=== PATIENT | male | born 1960 | race Caucasian/White ===

== ENCOUNTER 2021-08-25 14:01 | Emergency (ER) | payer OTHER ==
[2021-08-25 14:11] VITALS: BP 105/71; PULSE 107; TEMP 97.5; BMI 16.4
[2021-08-25] MEDS ORDERED: ALBUTEROL SO4 2.5/IPRATROPIUM 0.5 INH SOL 3 ML VIAL.NEB. NEB ONE (15:11)
[2021-08-25] MEDS ORDERED: predniSONE 20 MG TABLET (UD) ONE (15:27)
[2021-08-25] MEDS ORDERED: predniSONE 20 MG TABLET (UD) PO ONE (15:40)
[2021-08-26] MEDS ORDERED: predniSONE 20 MG TABLET (UD) PO SCH (10:00)
== END 2021-08-25 17:00 | disposition home or self-care (01) ==
LOC: JER 14:01
PROC: 3E0F7GC Introduction of Other Therapeutic Substance into Respiratory Tract, Via Natural or Artificial Opening (ICD-10-PCS; principal; 2021-08-25)
DX: J44.1 Chronic obstructive pulmonary disease with (acute) exacerbation (principal); F11.90 Opioid use, unspecified, uncomplicated
CPT/HCPCS: 93005; 93010; 99284-25; C9803-CS; U0003; U0005

== ENCOUNTER 2021-08-25 18:12 | Inpatient (IN) | payer OTHER ==
[2021-08-25 21:07] VITALS: BMI 16.0
[2021-08-25] MEDS ORDERED: ACETAMINOPHEN 325 MG TABLET (FP) PO PRN (21:32)
[2021-08-25] MEDS ORDERED: IBUPROFEN 400 MG TABLET (FP) PO PRN (21:32)
[2021-08-25] MEDS ORDERED: MAG HYDROX/AL HYDROX/SIMETH 30 ML UNIT-DOSE CUP PO PRN (21:32)
[2021-08-25] MEDS ORDERED: MAGNESIUM HYDROX 2400MG/30ML ORAL SUSPENSION 30 ML CUP PO PRN (21:32)
[2021-08-25] MEDS ORDERED: guaiFENesin 200 MG/10 ML 10 ML UNIT-DOSE CUPS PO PRN (21:32)
[2021-08-25] MEDS ORDERED: LOPERAMIDE HCL 2 MG CAPSULE PO PRN (21:32)
[2021-08-25] MEDS ORDERED: MAGNESIUM CITRATE 300 ML BOTTLE PO PRN (21:32)
[2021-08-25] MEDS ORDERED: P-EPHED 60MG/TRIPROLIDI 2.5MG TABLET PO PRN (21:32)
[2021-08-25] MEDS ORDERED: cloNIDine HCL 0.1 MG TABLET PO PRN (21:42)
[2021-08-25] MEDS ORDERED: MELATONIN 5 MG TABLETS PO SCH (22:00)
[2021-08-25] MEDS ORDERED: BUPRENORPHINE/NALOXONE 4 MG/1 MG FILM PACKET SL ONE (22:00)
[2021-08-26] MEDS: THIAMINE HCL 100 MG TABLET (FP) PO SCH ×2 (00:40→21:22)
[2021-08-26] MEDS: ALBUTEROL SO4 2.5/IPRATROPIUM 0.5 INH SOL 3 ML VIAL.NEB. NEB PRN ×2 (01:13→07:03)
[2021-08-26] MEDS: PRENATAL VITAMINS W/ FOLIC ACID TABLET (FP) PO SCH (09:39)
[2021-08-26] MEDS ORDERED: PATIENT'S OWN MEDICATION (NON-FORMULARY) (Ipratropium/Albuterol Sulfate 1 PUFF Inhaler) IH PRN (09:45)
[2021-08-26] MEDS ORDERED: LISINOPRIL 5 MG TABLET PO SCH (10:00)
[2021-08-26] MEDS ORDERED: TICAGRELOR 90 MG TABLET PO SCH (10:00)
[2021-08-26] MEDS ORDERED: BUPRENORPHINE/NALOXONE 8 MG/2 MG FILM PACKET SL SCH (10:00)
[2021-08-26] MEDS: TICAGRELOR PO SCH ×3 (11:40→21:20)
[2021-08-26] MEDS ORDERED: PATIENT'S OWN MEDICATION (NON-FORMULARY) (Ipratropium/Albuterol Sulfate 4 GM) IH PRN (12:14)
[2021-08-26 13:45] LABS: HEMATOCRIT 38.4 % (35.4-49); HEMOGLOBIN 12.9 GM/dL (11.7-16.9); MCH 29.4 pg (25.7-33.7); MCHC 33.6 g/dl (32.0-35.9); MEAN CELL VOLUME 87.4 fl (80-96); MEAN PLT VOLUME 6.5 fl (7.5-11.1); PLATELET COUNT 433 10^3/uL (134-434); RBC 4.39 M/mm3 (4.00-5.60); RDW 14.2 % (11.9-15.9); WHITE BLOOD COUNT 9.3 K/mm3 (4.0-10.0)
[2021-08-26 13:49] LABS: PH,URINE 6.5 (5.0-8.0); URINE APPEARANCE CLEAR; URINE BILIRUBIN NEGATIVE (NEGATIVE); URINE COLOR YELLOW; URINE GLUCOSE (UA) NEGATIVE (NEGATIVE); URINE KETONE NEGATIVE (NEGATIVE); URINE LEUK ESTERASE NEGATIVE (NEGATIVE); URINE NITRITE NEGATIVE (NEGATIVE); URINE PROTEIN NEGATIVE (NEGATIVE); URINE UROBILINOGEN 0.2 mg/dL (0.2-1.0)
[2021-08-26 14:13] LABS: ALBUMIN 3.2 g/dl (3.4-5.0); CALCIUM 9.7 mg/dL (8.5-10.1)
[2021-08-26 14:16] LABS: BLOOD UREA NITROGEN 17.3 mg/dL (7-18); CREATININE 0.6 mg/dL (0.55-1.3)
[2021-08-26 14:17] LABS: BILIRUBIN,TOTAL 0.3 mg/dL (0.2-1)
[2021-08-26] MEDS: hydrOXYzine PAMOATE 25 MG CAPSULE (FP) PO PRN ×2 (14:22→18:40)
[2021-08-26] MEDS: ALBUTEROL SO4 2.5/IPRATROPIUM 0.5 INH SOL 3 ML VIAL.NEB. NEB SCH ×2 (14:40→22:15)
[2021-08-26] MEDS: ASPIRIN 81 MG CHEWABLE TABLETS PO SCH (16:10)
[2021-08-26] MEDS: ATORVASTATIN CA PO SCH (21:21)
[2021-08-26] MEDS ORDERED: SUVOREXANT 10 MG TABLET PO PRN (22:00)
[2021-08-26] MEDS ORDERED: ATORVASTATIN CA 80 MG TABLET (FP) PO SCH (22:00)
[2021-08-27] MEDS: hydrOXYzine PAMOATE 25 MG CAPSULE (FP) PO PRN ×4 (02:22→19:34)
[2021-08-27] MEDS: OXYMETAZOLINE 0.05% NASAL SOLUTION 15 ML BOTTLE NS SCH ×3 (06:30→21:28)
[2021-08-27] MEDS: ALBUTEROL SO4 2.5/IPRATROPIUM 0.5 INH SOL 3 ML VIAL.NEB. NEB SCH (07:37)
[2021-08-27] MEDS: ASPIRIN 81 MG CHEWABLE TABLETS PO SCH (10:03)
[2021-08-27] MEDS: LISINOPRIL PO SCH (10:04)
[2021-08-27] MEDS: TICAGRELOR PO SCH ×2 (10:06→21:28)
[2021-08-27] MEDS: PRENATAL VITAMINS W/ FOLIC ACID TABLET (FP) PO SCH (10:07)
[2021-08-27] MEDS: BUPRENORPHINE/NALOXONE 4 MG/1 MG FILM PACKET SL SCH ×2 (10:08→21:30)
[2021-08-27] MEDS: METOPROLOL SUCCINATE 50 MG PO SCH (10:08)
[2021-08-27 13:45] LABS: ALBUMIN 3.5 g/dl (3.4-5.0); CALCIUM 9.6 mg/dL (8.5-10.1)
[2021-08-27 13:48] LABS: CREATININE 0.8 mg/dL (0.55-1.3)
[2021-08-27 13:49] LABS: TOT PROT 7.6 g/dl (6.4-8.2)
[2021-08-27 13:50] LABS: BILIRUBIN,TOTAL 0.6 mg/dL (0.2-1)
[2021-08-27] MEDS: THIAMINE HCL 100 MG TABLET (FP) PO SCH (21:28)
[2021-08-27] MEDS: ATORVASTATIN CA PO SCH (21:28)
[2021-08-27] MEDS: SUVOREXANT 15 MG TABLET PO PRN (21:30)
[2021-08-27] MEDS: [UNRECOGNIZED DRUG - OTHER] NEB PRN (21:42)
[2021-08-27] MEDS: IPRATROPIUM NEB PRN (21:42)
[2021-08-28] MEDS: hydrOXYzine PAMOATE 25 MG CAPSULE (FP) PO PRN ×3 (06:13→16:01)
[2021-08-28] MEDS: [UNRECOGNIZED DRUG - OTHER] NEB PRN (06:14)
[2021-08-28] MEDS: IPRATROPIUM NEB PRN (06:14)
[2021-08-28] MEDS: OXYMETAZOLINE 0.05% NASAL SOLUTION 15 ML BOTTLE NS SCH ×2 (09:35→21:41)
[2021-08-28] MEDS: PRENATAL VITAMINS W/ FOLIC ACID TABLET (FP) PO SCH (09:36)
[2021-08-28] MEDS: ASPIRIN 81 MG CHEWABLE TABLETS PO SCH (09:36)
[2021-08-28] MEDS: LISINOPRIL PO SCH (09:36)
[2021-08-28] MEDS: BUPRENORPHINE/NALOXONE 4 MG/1 MG FILM PACKET SL SCH ×2 (09:38→21:43)
[2021-08-28] MEDS: METOPROLOL SUCCINATE 50 MG PO SCH (09:38)
[2021-08-28] MEDS: TICAGRELOR PO SCH ×2 (09:39→21:42)
[2021-08-28] MEDS: THIAMINE HCL 100 MG TABLET (FP) PO SCH (21:41)
[2021-08-28] MEDS: ATORVASTATIN CA PO SCH (21:42)
[2021-08-28] MEDS: SUVOREXANT 15 MG TABLET PO PRN (21:43)
[2021-08-29] MEDS: hydrOXYzine PAMOATE 25 MG CAPSULE (FP) PO PRN ×4 (06:38→21:10)
[2021-08-29] MEDS: OXYMETAZOLINE 0.05% NASAL SOLUTION 15 ML BOTTLE NS SCH ×2 (09:30→21:09)
[2021-08-29] MEDS: ASPIRIN 81 MG CHEWABLE TABLETS PO SCH (09:30)
[2021-08-29] MEDS: TICAGRELOR PO SCH ×2 (09:30→21:09)
[2021-08-29] MEDS: LISINOPRIL PO SCH (09:31)
[2021-08-29] MEDS: BUPRENORPHINE/NALOXONE 4 MG/1 MG FILM PACKET SL SCH ×2 (09:31→21:10)
[2021-08-29] MEDS: PRENATAL VITAMINS W/ FOLIC ACID TABLET (FP) PO SCH (09:31)
[2021-08-29] MEDS: METOPROLOL SUCCINATE 50 MG PO SCH (09:33)
[2021-08-29] MEDS: THIAMINE HCL 100 MG TABLET (FP) PO SCH (21:08)
[2021-08-29] MEDS: ATORVASTATIN CA PO SCH (21:09)
[2021-08-29] MEDS: SUVOREXANT 15 MG TABLET PO PRN (21:11)
[2021-08-30] MEDS: hydrOXYzine PAMOATE 25 MG CAPSULE (FP) PO PRN ×4 (03:55→18:12)
[2021-08-30] MEDS: ASPIRIN 81 MG CHEWABLE TABLETS PO SCH (10:08)
[2021-08-30] MEDS: PRENATAL VITAMINS W/ FOLIC ACID TABLET (FP) PO SCH (10:08)
[2021-08-30] MEDS: LISINOPRIL PO SCH (10:08)
[2021-08-30] MEDS: TICAGRELOR PO SCH ×2 (10:08→21:15)
[2021-08-30] MEDS: BUPRENORPHINE/NALOXONE 4 MG/1 MG FILM PACKET SL SCH ×2 (10:08→21:15)
[2021-08-30] MEDS: OXYMETAZOLINE 0.05% NASAL SOLUTION 15 ML BOTTLE NS SCH ×2 (10:09→21:14)
[2021-08-30] MEDS: METOPROLOL SUCCINATE 50 MG PO SCH (10:10)
[2021-08-30] MEDS: THIAMINE HCL 100 MG TABLET (FP) PO SCH (21:15)
[2021-08-30] MEDS: ATORVASTATIN CA PO SCH (21:15)
[2021-08-30] MEDS: SUVOREXANT 15 MG TABLET PO PRN (21:17)
[2021-08-31] MEDS: hydrOXYzine PAMOATE 25 MG CAPSULE (FP) PO PRN ×4 (01:02→15:05)
[2021-08-31] MEDS: ASPIRIN 81 MG CHEWABLE TABLETS PO SCH (09:33)
[2021-08-31] MEDS: OXYMETAZOLINE 0.05% NASAL SOLUTION 15 ML BOTTLE NS SCH ×2 (09:33→21:18)
[2021-08-31] MEDS: PRENATAL VITAMINS W/ FOLIC ACID TABLET (FP) PO SCH (09:34)
[2021-08-31] MEDS: LISINOPRIL PO SCH (09:34)
[2021-08-31] MEDS: TICAGRELOR PO SCH ×2 (09:34→21:17)
[2021-08-31] MEDS: METOPROLOL SUCCINATE 50 MG PO SCH (09:35)
[2021-08-31] MEDS: BUPRENORPHINE/NALOXONE 4 MG/1 MG FILM PACKET SL SCH ×2 (09:35→21:18)
[2021-08-31] MEDS: SUVOREXANT 15 MG TABLET PO PRN (21:16)
[2021-08-31] MEDS: THIAMINE HCL 100 MG TABLET (FP) PO SCH (21:17)
[2021-08-31] MEDS: ATORVASTATIN CA PO SCH (21:17)
[2021-08-31] MEDS: ALBUTEROL SO4 2.5/IPRATROPIUM 0.5 INH SOL 3 ML VIAL.NEB. NEB PRN (22:01)
[2021-09-01] MEDS: hydrOXYzine PAMOATE 25 MG CAPSULE (FP) PO PRN (06:17)
[2021-09-01 06:32] VITALS: TEMP 98.7
[2021-09-01] MEDS: ALBUTEROL SO4 2.5/IPRATROPIUM 0.5 INH SOL 3 ML VIAL.NEB. NEB PRN (08:36)
[2021-09-01] MEDS: LISINOPRIL PO SCH (09:11)
[2021-09-01] MEDS: ASPIRIN 81 MG CHEWABLE TABLETS PO SCH (09:11)
[2021-09-01] MEDS: METOPROLOL SUCCINATE 50 MG PO SCH (09:11)
[2021-09-01] MEDS: BUPRENORPHINE/NALOXONE 4 MG/1 MG FILM PACKET SL SCH (09:11)
[2021-09-01] MEDS: TICAGRELOR PO SCH (09:11)
[2021-09-01] MEDS: OXYMETAZOLINE 0.05% NASAL SOLUTION 15 ML BOTTLE NS SCH (09:12)
[2021-09-01] MEDS: PRENATAL VITAMINS W/ FOLIC ACID TABLET (FP) PO SCH (09:12)
[2021-09-01 09:27] VITALS: BP 116/66; PULSE 77
== END 2021-09-01 09:45 | disposition home or self-care (01) | DRG 895 ==
LOC: YASAS 18:12 → Y3E 23:43
PROVIDERS: ADMIT Allergy & Immunology; ATTEND Psychiatry & Neurology Pain Medicine
PROC: HZ42ZZZ Group Counseling for Substance Abuse Treatment, Cognitive-Behavioral (ICD-10-PCS; principal; 2021-08-25)
DX: F11.20 Opioid dependence, uncomplicated (principal); F19.280 Other psychoactive substance dependence with psychoactive substance-induced anxiety disorder; F19.282 Other psychoactive substance dependence with psychoactive substance-induced sleep disorder; F12.20 Cannabis dependence, uncomplicated; I25.10 Atherosclerotic heart disease of native coronary artery without angina pectoris; I10 Essential (primary) hypertension; I25.2 Old myocardial infarction; Z95.5 Presence of coronary angioplasty implant and graft; E87.5 Hyperkalemia; E78.5 Hyperlipidemia, unspecified; J44.9 Chronic obstructive pulmonary disease, unspecified; K21.9 Gastro-esophageal reflux disease without esophagitis; Z87.891 Personal history of nicotine dependence
CPT/HCPCS: 36415; 80053; 81003; 85027; 86780; 94640